=== PATIENT | male | born 1990 | race Caucasian/White ===

== ENCOUNTER 2024-11-02 23:20 | Emergency (ER) | payer OTHER ==
[2024-11-02 23:28] VITALS: BP 159/94; PULSE 110; RESP 20; TEMP 98.6; BMI 37.3
[2024-11-03] MEDS ORDERED: KETOROLAC TROMETHAMINE 30 MG/1 ML VIAL ONE (00:14)
[2024-11-03] MEDS: KETOROLAC TROMETHAMINE 30 MG/1 ML VIAL IM ONE (00:31)
[2024-11-03 00:34] LABS: BASO % 0.4 % (0-2.0); EOS % 2.1 % (0-4.5); HEMATOCRIT 40.7 % (35.4-49); HEMOGLOBIN 13.5 GM/dL (11.7-16.9); LYMPH % 23.6 % (8-40); MCH 28.9 pg (25.7-33.7); MCHC 33.2 g/dl (32.0-35.9); MEAN PLT VOLUME 8.5 fl (7.5-11.1); MONO % 10.5 % (3.8-10.2); NEUT % 63.4 % (42.8-82.8); PLATELET COUNT 293 10^3/uL (134-434); RBC 4.67 M/mm3 (4.00-5.60); RDW 15.7 % (11.9-15.9); WHITE BLOOD COUNT 7.7 K/mm3 (4.0-10.0)
[2024-11-03 01:13] LABS: POTASSIUM 4.4 mmol/L (3.5-5.1)
[2024-11-03 01:15] LABS: ALBUMIN 3.7 g/dl (3.4-5.0); BLOOD UREA NITROGEN 12.3 mg/dL (7-18); CALCIUM 9.5 mg/dL (8.5-10.1)
[2024-11-03 01:19] LABS: CREATININE 0.9 mg/dL (0.55-1.3)
[2024-11-03 01:20] LABS: BILIRUBIN,TOTAL 0.2 mg/dL (0.2-1); TOT PROT 7.4 g/dl (6.4-8.2)
[2024-11-03 02:25] LABS: INR 1.07 (0.83-1.09); PROTHROMBIN TIME (PATIENT) 12.1 SEC (9.7-13.0)
[2024-11-03 02:28] LABS: ACTIVATED PTT 35.9 SECONDS (25.2-36.5)
== END 2024-11-03 01:49 | disposition home or self-care (01) ==
LOC: JER 23:20
PROC: 3E0133Z Introduction of Anti-inflammatory into Subcutaneous Tissue, Percutaneous Approach (ICD-10-PCS; principal; 2024-11-03)
DX: R07.9 Chest pain, unspecified (principal); M79.602 Pain in left arm
CPT/HCPCS: 36415; 71046-TC-FY; 80053; 84484; 85025; 85610; 85730; 93005; 93010; 99285-25